=== PATIENT | female | born 1945 ===

== ENCOUNTER → 2024-07-31 12:41 | Outpatient (REF) | payer OTHER, SELFPAY | LOC: WOUND 12:41 | PROVIDERS: ATTENDING PHYSICIAN Surgery | DX: L97.312 Non-pressure chronic ulcer of right ankle with fat layer exposed (principal); I87.2 Venous insufficiency (chronic) (peripheral); I73.9 Peripheral vascular disease, unspecified; Z85.820 Personal history of malignant melanoma of skin | CPT/HCPCS: 99214 ==